=== PATIENT | female | born 1955 | race Caucasian/White ===

== ENCOUNTER 2021-08-22 12:49 | Emergency (ER) | payer MEDICARE, MEDICAID ==
[2021-08-22] MEDS ORDERED: ASPIRIN CHEW 81 MG TABLET PO STA (12:54)
[2021-08-22] MEDS ORDERED: clonazePAM 0.5 MG TABLET PO STA (12:54)
--- NOTE | 2021-08-22 12:57 | ED Physician Documentation ---
PD HPI CHEST PAIN - Stated complaint Stated Complaint: CLEAR FOR TREATMENT - History obtained from History obtained from: Patient, Other (Jet Edgarcheikh mgr) - Additional information Additional information: 66-year-old woman brought in for clearance for admission to detox facility. The concern is that about 2 years ago she had a heart attack with [address] She is not having any symptoms except anxiety. She denies chest pain. She has been off of benzodiazepines for about a week. The only other medication she has been taking is aspirin. Review of Systems Constitutional: denies: Fever, Chills, Fatigue Nose: denies: Rhinorrhea / runny nose, Congestion Cardiac: denies: Chest pain / pressure, Palpitations Respiratory: denies: Dyspnea, Cough PD PAST MEDICAL HISTORY - Allergies Allergies/Adverse Reactions: Allergies Allergy/AdvReac Type Severity Reaction Status Date / Time No Known Drug Allergies Allergy Verified 08/22/21 12:49 PD ED PE NORMAL - Vitals Vital signs reviewed: Yes - General General: Alert and oriented X 3, Other (Vital signs are unremarkable. She does not appear tremulous.) - HEENT HEENT: PERRL, EOMI, Other (Extensive birthmark over the left neck and upper chest) - Cardiac Cardiac: RRR, No murmur - Respiratory Respiratory: No respiratory distress, Clear bilaterally - Abdomen Abdomen: Non tender - Extremities Extremities: No edema, No calf tenderness / cord - Neuro Neuro: Alert and oriented X 3, Normal speech Results - Vitals Vitals: Vital Signs - 24 hr 08/22/21 08/22/21 12:50 13:15 Temperature 37.2 C Heart Rate 75 76 Respiratory 17 19 Rate Blood Pressure 129/118 H 117/60 O2 Saturation 97 98 Oxygen O2 Source Room air - EKG (time done) 1251 Rate: Rate (enter#) (78) Rhythm: NSR [place]: LAD Intervals: Normal SC QRS: Normal Ischemia: Normal ST segments, Q waves (anteroseptal). No: ST elevation c/w ischemia, ST depression Computer interpretation: Agree with computer PD MEDICAL DECISION MAKING - ED course ED course: 66-year-old woman brought in for medical screening examination prior to admission to a detox facility. History physical and EKG done without findings that would necessitate urgent or emergent intervention. Departure - Departure Disposition: 01 Home, Self Care Clinical Impression: History of coronary artery disease, Encounter for medical screening examination Condition: Good Record reviewed to determine appropriate education?: Yes Comments: No sign of active heart disease. She needs to follow-up with primary care after discharge from [facility] for consideration for statin therapy and other routine and age-appropriate treatments. Return as needed for new or worsening symptoms. For now she should take a baby aspirin (81mg) a day. No other specific interventions are necessary until she is discharged from [facility]. Discharge Date/Time: 08/22/21 13:15
[2021-08-22 13:17] VITALS: BP 117/60
== END 2021-08-22 13:15 | disposition home or self-care (01) ==
LOC: ED 12:49
DX: Z02.2 Encounter for examination for admission to residential institution (principal); I25.10 Atherosclerotic heart disease of native coronary artery without angina pectoris
CPT/HCPCS: 93005; 99282; 99283; A9270